=== PATIENT | male | born 1995 | race American Indian/Alaskan Native ===

== ENCOUNTER 2017-04-12 09:17 | Emergency (ER) | payer OTHER ==
[~2017-04-12] VITALS: Ht 190.5 cm; Wt 104.3 kg
[~2017-04-12 09:17] MED LIST: CYCLOBENZAPRINE10 MG PO; NAPROXEN500 MG PO
== END 2017-04-12 13:39 | disposition home or self-care (01) ==
LOC: ED 09:17
PROC: 0HQDXZZ Repair Right Lower Arm Skin, External Approach (ICD-10-PCS; principal; 2017-04-12)
DX: S66.921A Laceration of unspecified muscle, fascia and tendon at wrist and hand level, right hand, initial encounter (principal); Z23 Encounter for immunization; X78.9XXA Intentional self-harm by unspecified sharp object, initial encounter
CPT/HCPCS: 12004; 36415; 80053; 80176; 81001; 85025; 90471; 90715; 99284; G0480

== ENCOUNTER 2017-04-20 00:40 | Emergency (ER) | payer OTHER ==
[~2017-04-20] VITALS: Ht 190.5 cm; Wt 104.3 kg
== END 2017-04-20 03:52 | disposition home or self-care (01) ==
LOC: ED 00:40
DX: R45.851 Suicidal ideations (principal); F10.129 Alcohol abuse with intoxication, unspecified; Y90.8 Blood alcohol level of 240 mg/100 ml or more
CPT/HCPCS: 80053; 80176; 81001; 85025; 99283; G0480

== ENCOUNTER 2018-03-30 18:36 | Emergency (ER) | payer OTHER ==
[~2018-03-30] VITALS: Ht 190.5 cm; Wt 104.3 kg
[~2018-03-30 18:36] MED LIST changes: +ZOFRAN ODT4 MG PO
--- NOTE | 2018-03-30 20:18 | EKG ---
[facility] [address] [facility] [address] [place] [address] Signed Sinus tachycardia Possible Left atrial enlargement Left axis deviation Abnormal ECG No previous ECGs available Confirmed by EVER GALLEGOS MD ([id number]) on 03/30/2018 8:18:36 PM Electronically Signed By: EVER GALLEGOS MD 03/30/18 2018 PATIENT NAME: JACINDA COLE Electrocardiogram DATE OF : 89 PHYSICIAN: EVER GALLEGOS MD REPORT #: [id number] REPORT IS CONFIDENTIAL AND NOT TO BE RELEASED WITHOUT AUTHORIZATION
[2018-03-31] MEDS ORDERED: LEVAQUIN750 MG PO (00:08)
== END 2018-03-31 00:21 | disposition home or self-care (01) ==
LOC: ED 18:36
DX: J18.9 Pneumonia, unspecified organism (principal); Z87.891 Personal history of nicotine dependence
CPT/HCPCS: 71046; 80053; 83605; 85025; 87040; 87502; 93005; 93010; 96365; 99284-25; J0696; J7030

== ENCOUNTER 2020-06-27 09:28 | Emergency (ER) | payer OTHER ==
[~2020-06-27] VITALS: Ht 190.5 cm; Wt 122.5 kg
[~2020-06-27 09:28] MED LIST changes: +LEVAQUIN750 MG PO
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
== END 2020-06-27 12:30 | disposition home or self-care (01) ==
LOC: ED 09:28
PROC: 0HQFXZZ Repair Right Hand Skin, External Approach (ICD-10-PCS; principal; 2020-06-27)
DX: S61.212A Laceration without foreign body of right middle finger without damage to nail, initial encounter (principal); S80.11XA Contusion of right lower leg, initial encounter; M54.5 Low back pain; V58.5XXA Driver of pick-up truck or van injured in noncollision transport accident in traffic accident, initial encounter; F17.200 Nicotine dependence, unspecified, uncomplicated; Z23 Encounter for immunization
CPT/HCPCS: 12002; 70450; 71260; 72125; 74177; 80053; 81001; 82150; 82550; 83690; 85025; 86850; 86900; 86901; 90471; 90715; 99284-25; J7121; Q9967